=== PATIENT | female | born 1945 | race Hispanic/Latino ===

== ENCOUNTER 2023-07-22 05:05 | Observation (INO) | payer OTHER ==
[2023-07-17 11:54] LABS: BASOPHILS # (AUTO) 0.05 K/uL (0.00-0.20); BASOPHILS % (AUTO) 0.8 % (0.0-5.0); EOSINOPHILS # (AUTO) 0.11 K/uL (0.00-0.70); EOSINOPHILS % (AUTO) 1.8 % (0.0-8.0); HEMATOCRIT 45.8 % (36-48); IMMATURE GRANULOCYTE ABSOLUTE 0.02 K/uL (0-1); LYMPHOCYTES # (AUTO) 2.3 K/uL (1.0-4.8); LYMPHOCYTES % (AUTO) 37.3 % (21.0-51.0); MEAN CORPUSCULAR HGB CONC 31.7 g/dL (32.0-36.0); MEAN CORPUSCULAR VOLUME 91.6 fL (79-99); MONOCYTES # (AUTO) 0.4 K/uL (0.1-1.0); MONOCYTES % (AUTO) 6.2 % (3.0-13.0); NEUTROPHILS # (AUTO) 3.4 K/uL (1.8-7.7); NEUTROPHILS % (AUTO) 53.6 % (40.0-77.0); PLATELET COUNT (AUTO) 267 K/uL (130-400); RED CELL DISTRIBUTION WIDTH 13.1 % (11.0-15.5); WHITE BLOOD COUNT (AUTO) 6.3 K/uL (4.8-10.8)
[2023-07-17 12:11] LABS: INR <= 0.93 (0.85-1.15); PROTHROMBIN TIME 10.3 SEC (9.6-11.6)
[2023-07-17 12:12] LABS: CREATININE 0.5 mg/dL (0.5-1.0); POTASSIUM 4.4 mmol/L (3.5-5.1)
[2023-07-17 12:13] LABS: PARTIAL THROMBOPLASTIN TIME 29.6 SEC (26.3-35.5)
[2023-07-17 12:40] VITALS: BP 137/62; PULSE 58; RESP 18
[~2023-07-22] VITALS: Ht 139.7 cm; Wt 70.7 kg
[2023-07-22] VITALS (25 sets, daily range): BP systolic 108–153; BP diastolic 43–68; PULSE 58–72; RESP 14–18; O2SAT 97–98
[~2023-07-22 05:05] MED LIST: ALEN70TA80 PO; ERGO500093 PO; LEVO88TA7 PO; PANT20TA18 PO; [UNRECOGNIZED DRUG - OTHER] PO
[2023-07-22] MEDS: 0.9%NACL 1000ML 1,000 ML IV ONE (07:54)
[2023-07-22] MEDS ORDERED: VANCOMYCIN 1G/250ML KIT 500 ML IV ONE (08:43)
[2023-07-22] MEDS ORDERED: FENTANYL CITRATE PF 50 MCG/1 ML 2ML VIAL ONE (09:58)
[2023-07-22] MEDS ORDERED: PROPOFOL 10 MG/ML 20ML VIAL IV ONE (09:58)
[2023-07-22] MEDS ORDERED: ROCURONIUM BROMIDE 10MG/1ML 5ML VL ONE (09:58)
[2023-07-22] MEDS ORDERED: LIDOCAINE PF 100MG/5ML (2%) SYRINGE 5ML ONE (09:58)
[2023-07-22] MEDS ORDERED: DEXAMETHASONE SOD PHOSPHATE 10MG/ML 1ML VIAL ONE (10:37)
[2023-07-22] MEDS ORDERED: ONDANSETRON 4MG INJ ONE (10:37)
[2023-07-22] MEDS ORDERED: EPHEDRINE SULFATE 50 MG/ML AMPULE ONE (10:42)
[2023-07-22] MEDS ORDERED: KETAMINE 50MG/ML SYRINGE 50 MG/ML DISP.SYRIN ONE (10:45)
[2023-07-22] MEDS: CLINDAMYCIN 900MG/6ML INJ IV ONE (10:45)
[2023-07-22] MEDS: 0.9%NACL 48.45 ML, ROPIVACAINE 0.5% 49.25ML, EPINEPH 0.5MG KETOROLAC 30MG,CLONIDINE 80MCG IV PRN (11:50)
[2023-07-22] MEDS: TRANEXAMIC ACID 1000MG/10ML IV ONE (12:15)
[2023-07-22] MEDS ORDERED: NEOSTIGMINE METHYLSULFATE 1MG/ML IV ONE (12:21)
[2023-07-22] MEDS ORDERED: GLYCOPYRROLATE 0.2 MG/ML 5 ML VIAL ONE (12:21)
[2023-07-22] MEDS: CEFAZOLIN SODIUM 2 GM VIAL ONE (14:22)
[2023-07-22] MEDS: TRANEXAMIC ACID 1000MG/10ML ONE (14:22)
[2023-07-22] MEDS: CLINDAMYCIN IVPB 900MG/50ML 50 ML IV ONE (14:22)
[2023-07-22] MEDS: GENTAMICIN SULFATE 80 MG/2 ML VIAL ONE (14:23)
[2023-07-22] MEDS: ACETAMINOPHEN 1,000 MG/100 ML VIAL IV ONE (14:24)
[2023-07-22] MEDS: FAMOTIDINE 20MG VIAL IV ONE (14:25)
[2023-07-22] MEDS ORDERED: DiphenhydrAMINE HCL 50 MG/ML VIAL IM PRN (15:00)
[2023-07-22] MEDS ORDERED: MAG/ALUM/SIMETH 30 ML UDCUP PO PRN (15:00)
[2023-07-22] MEDS ORDERED: BENZOCAINE/MENTH/CETYLPYRD CL 1 EACH LOZENGE MM PRN (15:00)
[2023-07-22] MEDS ORDERED: LACTULOSE 20 GM/30 ML UDCUP PO PRN (15:00)
[2023-07-22] MEDS ORDERED: ACETAMINOPHEN 325 MG TAB PO SCH (15:00)
[2023-07-22] MEDS ORDERED: DIPHENHYDRAMINE HCL 25 MG CAPSULE PO PRN (15:00)
[2023-07-22] MEDS ORDERED: DIPHENOXYLATE HCL/ATROPINE 2.5/0.025 MG TAB PO PRN (15:00)
[2023-07-22] MEDS ORDERED: ONDANSETRON 4MG INJ IVP PRN (15:00)
[2023-07-22] MEDS ORDERED: ACETAMINOPHEN 325 MG TAB PO PRN ×2 (15:00)
[2023-07-22] MEDS: 0.9%NACL 1000ML 1,000 ML IV SCH (15:47)
[2023-07-22] MEDS: HYDROMORPH /0.9% NACL/PF PCA 50 ML IV PRN (15:49)
[2023-07-23] VITALS: BP 107/52; PULSE 63; RESP 16
[2023-07-23 03:48] LABS: HEMATOCRIT 39.8 % (36-48); MEAN CORPUSCULAR HEMOGLOBIN 29.6 pg (27.0-33.0); MEAN CORPUSCULAR HGB CONC 32.4 g/dL (32.0-36.0); MEAN CORPUSCULAR VOLUME 91.3 fL (79-99); RED BLOOD CELL COUNT(AUTO) 4.36 MIL/uL (4.00-5.50); RED CELL DISTRIBUTION WIDTH 12.8 % (11.0-15.5); WHITE BLOOD COUNT (AUTO) 14.6 K/uL (4.8-10.8)
[2023-07-23 04:08] LABS: HEMOGLOBIN A1C 6.1 % (4.0-6.0)
[2023-07-23 04:26] LABS: CREATININE 0.7 mg/dL (0.5-1.0); POTASSIUM 4.4 mmol/L (3.5-5.1)
[2023-07-23] MEDS: LEVOTHYROXINE 88 MCG TABLET PO SCH (05:53)
[2023-07-23] MEDS ORDERED: ONDANSETRON 4MG INJ ONE (06:51)
[2023-07-23] MEDS ORDERED: PROPOFOL 10 MG/ML 20ML VIAL IV ONE (06:51)
[2023-07-23] MEDS ORDERED: DEXAMETHASONE SOD PHOSPHATE 10MG/ML 1ML VIAL ONE (06:51)
[2023-07-23] MEDS ORDERED: LIDOCAINE PF 100MG/5ML (2%) SYRINGE 5ML ONE (06:51)
[2023-07-23] MEDS ORDERED: ROCURONIUM BROMIDE 10MG/1ML 5ML VL ONE (06:52)
[2023-07-23] MEDS ORDERED: FENTANYL CITRATE PF 50 MCG/1 ML 2ML VIAL ONE (06:52)
[2023-07-23] MEDS ORDERED: MIDAZOLAM HCL 1 MG/ML 2ML VIAL ONE (06:52)
[2023-07-23] MEDS: TRAMADOL HCL 50 MG TABLET PO PRN (06:54)
[2023-07-23 07:17] VITALS: BP 111/50; PULSE 67; RESP 16
[2023-07-23 08:00] VITALS: O2SAT 95
[2023-07-23 08:21] VITALS: BP 112/60; PULSE 67; RESP 18
[2023-07-23] MEDS: PANTOPRAZOLE 40 MG TAB DR PO SCH (10:39)
[2023-07-23] MEDS: RIVAROXABAN 10 MG TABLET PO SCH (10:40)
[2023-07-23 11:53] VITALS: BP 104/55; PULSE 60; RESP 18
[2023-07-23 16:52] VITALS: BP 132/60; PULSE 67; RESP 17
== END 2023-07-23 17:05 | disposition home or self-care (01) ==
LOC: DAH 05:05 → DAHIP 05:06 → DAH 05:06 → 4CH 14:25
PROVIDERS: ADMIT Orthopaedic Surgery; ATTEND Orthopaedic Surgery
DX: M17.12 Unilateral primary osteoarthritis, left knee (principal); M21.162 Varus deformity, not elsewhere classified, left knee; E66.9 Obesity, unspecified; E78.5 Hyperlipidemia, unspecified; E03.9 Hypothyroidism, unspecified; E20.9 Hypoparathyroidism, unspecified; N18.2 Chronic kidney disease, stage 2 (mild); K21.9 Gastro-esophageal reflux disease without esophagitis; Z68.36 Body mass index [BMI] 36.0-36.9, adult; Z85.118 Personal history of other malignant neoplasm of bronchus and lung; Z88.0 Allergy status to penicillin; Z86.2 Personal history of diseases of the blood and blood-forming organs and certain disorders involving the immune mechanism
CPT/HCPCS: 80048 ×2; 85025; 85610; 85730; 36415 ×2; 71045; 93005; 87641; 27447; 96365; 96366; 96375; 97161; 97012; 97116 ×3; 97530 ×5; 83036; 85027; A6260; G0378 ×24; A4510; A4663; J7120; A4215 ×2; A4649 ×4; J3370 ×2; J3490 ×10; J3010 ×2; J1100 ×2; J7030 ×2; J0171; J2001 ×2; J1580 ×2; J2704 ×2; J2405 ×2; J1885; J2710; J2795; J0735; J0690; A6223; A4930 ×2; C1763 ×2; C1776; A5120; A4223; A4222; A4221; A6450; J2250

== ENCOUNTER 2023-11-12 07:22 | Observation (INO) | payer OTHER, MEDICARE ==
[2023-11-11 12:32] LABS: BASOPHILS # (AUTO) 0.04 K/uL (0.00-0.20); BASOPHILS % (AUTO) 0.7 % (0.0-5.0); EOSINOPHILS % (AUTO) 1.7 % (0.0-8.0); HEMATOCRIT 42.3 % (36-48); IMMATURE GRANULOCYTE ABSOLUTE 0.01 K/uL (0-1); LYMPHOCYTES % (AUTO) 33.7 % (21.0-51.0); MEAN CORPUSCULAR HEMOGLOBIN 28.7 pg (27.0-33.0); MEAN CORPUSCULAR HGB CONC 31.4 g/dL (32.0-36.0); MEAN CORPUSCULAR VOLUME 91.2 fL (79-99); MONOCYTES # (AUTO) 0.4 K/uL (0.1-1.0); MONOCYTES % (AUTO) 6.4 % (3.0-13.0); NEUTROPHILS # (AUTO) 3.4 K/uL (1.8-7.7); NEUTROPHILS % (AUTO) 57.3 % (40.0-77.0); PLATELET COUNT (AUTO) 258 K/uL (130-400); RED BLOOD CELL COUNT(AUTO) 4.64 MIL/uL (4.00-5.50); WHITE BLOOD COUNT (AUTO) 5.9 K/uL (4.8-10.8)
[2023-11-11 12:50] LABS: PROTHROMBIN TIME 10.8 SEC (9.6-11.6)
[2023-11-11 12:56] LABS: CREATININE 0.6 mg/dL (0.5-1.0); POTASSIUM 4.3 mmol/L (3.5-5.1)
[2023-11-11 13:00] VITALS: BP 157/67; PULSE 51; RESP 16
[2023-11-11 13:39] LABS: APPEARANCE,URINE CLEAR (CLEAR); BILIRUBIN,URINE NEGATIVE (NEGATIVE); COLOR,URINE LIGHT-YELLOW (YELLOW); GLUCOSE, URINE (UA) NEGATIVE (NEGATIVE); KETONES,URINE NEGATIVE (NEGATIVE); LEUKOCYTE ESTERASE ,URINE NEGATIVE Leu/uL (NEGATIVE); NITRATE,URINE NEGATIVE (NEGATIVE); PH,URINE 5.5 (5.0-8.0); PROTEIN,URINE NEGATIVE (NEGATIVE); UROBILINOGEN,URINE 0.2 mg/dL (0.2-1.0)
[2023-11-11 13:40] LABS: ADD UA MICROSCOPIC YES
[2023-11-11 13:56] LABS: MUCUS,URINE RARE LPF (None Seen); SQUAMOUS EPITHELIAL CELL,UR FEW /HPF (0-2); WBC,URINE 0-1 /HPF (0-1)
[~2023-11-12] VITALS: Ht 142.2 cm; Wt 69.9 kg
[2023-11-12] VITALS (29 sets, daily range): BP systolic 125–158; BP diastolic 52–78; PULSE 52–74; RESP 14–18; O2SAT 98
[~2023-11-12 07:22] MED LIST changes: +SIMV-46 PO
[2023-11-12] MEDS ORDERED: CEFAZOLIN SODIUM 1 GM VIAL ONE (08:06)
[2023-11-12] MEDS ORDERED: MORPHINE PF 100MG/10ML AMP IV ONE (08:25)
[2023-11-12] MEDS ORDERED: ONDANSETRON 4MG INJ ONE (10:25)
[2023-11-12] MEDS ORDERED: ROCURONIUM BROMIDE 10MG/1ML 5ML VL ONE (10:25)
[2023-11-12] MEDS ORDERED: PROPOFOL 10 MG/ML 20ML VIAL IV ONE (10:25)
[2023-11-12] MEDS ORDERED: FENTANYL CITRATE PF 50 MCG/1 ML 2ML VIAL ONE (10:28)
[2023-11-12] MEDS ORDERED: ROPIVACAINE 0.5% 5MG/ML 30ML ONE (10:29)
[2023-11-12] MEDS ORDERED: PHENYLEPHRINE HCL 10 MG/ML 1ML VIAL IV ONE (10:48)
[2023-11-12] MEDS ORDERED: VANCOMYCIN IV ONE (11:23)
[2023-11-12] MEDS ORDERED: NEOSTIGMINE METHYLSULFATE 1MG/ML IV ONE (13:53)
[2023-11-12] MEDS ORDERED: GLYCOPYRROLATE 0.2 MG/ML 5 ML VIAL ONE (13:53)
[2023-11-12] MEDS ORDERED: POTASSIUM CHLORIDE 20MEQ/100ML 100 ML IV PRN (14:00)
[2023-11-12] MEDS ORDERED: CALCIUM CARB 500MG PO PRN (14:00)
[2023-11-12] MEDS ORDERED: FERROUS FUMARATE 324 MG TABLET PO PRN (14:00)
[2023-11-12] MEDS ORDERED: DiphenhydrAMINE HCL 50 MG/ML VIAL IVP PRN (14:00)
[2023-11-12] MEDS ORDERED: ONDANSETRON 4MG INJ IVP PRN (14:00)
[2023-11-12] MEDS ORDERED: KCL 20 MEQ ERTAB PO PRN (14:00)
[2023-11-12] MEDS ORDERED: POTASSIUM CHLORIDE 10% ELIXIR 20 MEQ/15 ML UDCUP PO PRN (14:00)
[2023-11-12] MEDS: ACETAMINOPHEN 1,000 MG/100 ML VIAL IV ONE (14:33)
[2023-11-12] MEDS: ONDANSETRON 4MG INJ ONE (15:18)
[2023-11-12] MEDS: LACTATED RINGERS 1000ML 1,000 ML IV ONE (17:04)
[2023-11-12] MEDS: CLINDAMYCIN IVPB 900MG/50ML 50 ML IV ONE (17:04)
[2023-11-12] MEDS: CEFAZOLIN SODIUM 1 GM VIAL ONE (17:05)
[2023-11-12] MEDS: VANCOMYCIN 1G/250ML KIT 250 ML IV ONE (17:05)
[2023-11-12] MEDS: 0.9%NACL 1000ML 1,000 ML IV SCH (17:12)
[2023-11-12] MEDS: ASPIRIN 81 MG EC TAB PO SCH (21:09)
[2023-11-12] MEDS: CELECOXIB 200 MG CAP PO SCH (21:09)
[2023-11-12] MEDS: CLINDAMYCIN IVPB 900MG/50ML 50 ML IV SCH (21:09)
[2023-11-13 04:56] VITALS: BP 126/60; PULSE 66; RESP 18
[2023-11-13 05:14] LABS: HEMATOCRIT 39.4 % (36-48); MEAN CORPUSCULAR HEMOGLOBIN 28.5 pg (27.0-33.0); MEAN CORPUSCULAR HGB CONC 31.7 g/dL (32.0-36.0); RED BLOOD CELL COUNT(AUTO) 4.38 MIL/uL (4.00-5.50); RED CELL DISTRIBUTION WIDTH 12.8 % (11.0-15.5); WHITE BLOOD COUNT (AUTO) 9.8 K/uL (4.8-10.8)
[2023-11-13 05:43] LABS: CREATININE 0.6 mg/dL (0.5-1.0); POTASSIUM 3.9 mmol/L (3.5-5.1)
[2023-11-13 07:15] VITALS: BP 117/60; PULSE 68; RESP 20
[2023-11-13 08:30] VITALS: O2SAT 99
[2023-11-13] MEDS: POLYETHYLENE GLYCOL 3350 17 GM POWD.PACK PO SCH (08:33)
[2023-11-13] MEDS: HYDROCODONE/ACETAMINOPHEN 5/325 MG TAB PO PRN (08:34)
[2023-11-13] MEDS: PANTOPRAZOLE 40 MG TAB DR PO SCH (09:00)
[2023-11-13] MEDS: KETOROLAC 15MG/ML VIAL (15MG/ML) IV PRN (12:22)
[2023-11-13] MEDS ORDERED: HYDR-4060 PO (16:17)
[2023-11-13] MEDS ORDERED: AEC81 PO (16:17)
[2023-11-13] MEDS ORDERED: ACET-2079 PO (16:25)
[2023-11-13] MEDS ORDERED: SIMVASTATIN 20 MG TABLET PO SCH (21:00)
[2023-11-14] MEDS ORDERED: LEVOTHYROXINE 88 MCG TABLET PO SCH (06:30)
[2023-11-15] MEDS ORDERED: BISACODYL 10 MG SUPP.RECT RC PRN (14:00)
== END 2023-11-13 17:57 | disposition home or self-care (01) ==
LOC: DAH 07:22 → DAHIP 07:23 → DAH 07:23 → 4BH 16:25
PROVIDERS: ADMIT Orthopaedic Surgery; ATTEND Orthopaedic Surgery
DX: M17.11 Unilateral primary osteoarthritis, right knee (principal); G89.18 Other acute postprocedural pain; E03.9 Hypothyroidism, unspecified; E78.00 Pure hypercholesterolemia, unspecified; Z86.2 Personal history of diseases of the blood and blood-forming organs and certain disorders involving the immune mechanism; Z85.118 Personal history of other malignant neoplasm of bronchus and lung; Z88.0 Allergy status to penicillin; Z79.899 Other long term (current) drug therapy
CPT/HCPCS: 80048 ×2; 85025; 85610; 87086; 81001; 36415 ×2; 87641; 64447; 27447; 96376; 96365; 96375; 85027; 97161; 97116 ×2; 97530 ×3; G0378 ×24; A4223 ×2; A4663; J7120 ×2; J3010; J0690 ×2; J3490 ×5; J2704; J2274; J2405 ×2; J2710; J3370 ×2; J2795; J2371; A9272; A4649 ×3; A4930 ×3; C1763; C1776; A5120; A4215; A4222; A4221; J1885